=== PATIENT | male | born 1965 | race Caucasian/White ===

== ENCOUNTER 2021-01-11 09:55 | Observation (INO) ==
[2021-01-11] MEDS ORDERED: METOPROLOL TARTRATE 5 MG/5 ML VIAL IV STA (10:19)
[2021-01-11] MEDS ORDERED: NITROGLYCERIN 2% OINT 1 INCH/GM PACK TOP STA (10:19)
[2021-01-11] MEDS ORDERED: ASPIRIN 325 MG TABLET PO STA (10:19)
[2021-01-11] MEDS ORDERED: ENOXAPARIN 100 MG/ML SYRINGE SUBCUT STA (10:19)
[2021-01-11 10:59] LABS: Basophils % 0.6 % (0.0-0.8); Eosinophils # 0.1 10*3/uL (0.0-0.87); Eosinophils % 1.2 % (0.00-10.9); Hematocrit 46.2 VOL% (42.0-52.0); Hemoglobin 15.7 GM/DL (14.0-18.0); Immature Granulocytes % 0.6 %; Immature Granulocytes Absolute 0.03 #; Mean Corpuscular Volume 93.1 FL (87-102); Mean Platelet Volume 9.3 FL (9.6-12.0); Monocytes % 13.2 % (1.7-12.7); Neutrophils % 64.4 % (38.7-73.9); Platelet Count 201 T/CUMM (130-400); Red Blood Count 4.96 MC/CUMM (3.8-5.5); Red Cell Distribution Width 11.5 % (9.3-17.3); White Blood Count 5.1 T/CUMM (4-12)
[2021-01-11 11:09] LABS: PT Patient Result 10.4 SECS (9.8-11.9)
[2021-01-11 11:25] LABS: Bilirubin,Total 0.4 MG/DL (0.2-1.0); Calcium 9.2 MG/DL (8.5-10.1); Osmolality,Calculated 275.8 MOS/KG (273-304); Potassium 3.7 MMOL/L (3.5-5.1); Total Protein 7.5 G/DL (6.4-8.2)
[2021-01-11] MEDS ORDERED: ACETAMINOPHEN 500 MG TABLET ONE ×2 (11:35→11:36)
[2021-01-11] MEDS ORDERED: ONDANSETRON 4 MG/2 ML VIAL ONE (11:42)
[2021-01-11] MEDS ORDERED: ACETAMINOPHEN 325 MG TABLET PO PRN (11:49)
[2021-01-11] MEDS ORDERED: hydrALAZINE 20 MG/1 ML VIAL IV PRN (11:49)
[2021-01-11] MEDS ORDERED: ONDANSETRON 4 MG/2 ML VIAL IV PRN (11:49)
[2021-01-11] MEDS ORDERED: LOSARTAN 50 MG TABLET PO SCH (12:00)
[2021-01-11] MEDS ORDERED: chlordiazePOXIDE 10 MG CAPSULE PO PRN (13:29)
[2021-01-11] MEDS: METOPROLOL TARTRATE 25 MG TABLET PO SCH ×2 (14:38→21:14)
[2021-01-11 18:32] LABS: Barbiturates Screen,Urine Negative (Negative); Benzodiazepines Screen,Urine Negative (Negative); Cannabinoid Screen,Urine Negative (Negative); Opiate Screen,Urine Negative (Negative); Phencyclidine Screen,Urine Negative (Negative)
[2021-01-12 06:39] LABS: Albumin 3.4 G/DL (3.4-5.0); Bilirubin,Total 0.5 MG/DL (0.2-1.0); Osmolality,Calculated 281.4 MOS/KG (273-304); Potassium 4.8 MMOL/L (3.5-5.1); Risk Ratio 4.25; Thyroid Stimulating Hormone 1.03 uIU/ml (0.358-3.74); Total Protein 6.9 G/DL (6.4-8.2); VLDL CHOLESTEROL 35.8 MG/DL
[2021-01-12 08:20] VITALS: BP 132/93
[2021-01-12] MEDS ORDERED: FOLIC ACID 1 MG TABLET PO SCH (09:00)
[2021-01-12] MEDS ORDERED: LOSARTAN 25 MG TABLET PO SCH (09:00)
[2021-01-12] MEDS ORDERED: MULTIVITAMIN (BEROCCA) TABLET PO SCH (09:00)
[2021-01-12] MEDS ORDERED: ENOXAPARIN 40 MG/0.4 ML SYRINGE SUBCUT SCH (09:00)
[2021-01-12] MEDS ORDERED: THIAMINE 100 MG TABLET PO SCH (09:00)
[2021-01-12] MEDS ORDERED: ASPIRIN EC 325 MG TABLET PO SCH (09:00)
[2021-01-12] MEDS: METOPROLOL TARTRATE 25 MG TABLET PO SCH (09:11)
[2021-01-12 10:28] LABS: Troponin I < 0.015 NG/ML (0.00-0.045)
== END 2021-01-12 11:24 | disposition home or self-care (01) ==
LOC: N.EDINP 09:55 → N.ED 09:55 → N.EDINP 16:03 → N.TELEN 16:11
PROVIDERS: ADMIT Family Medicine; ATTEND Family Medicine